=== PATIENT | female | born 1985 | race Two or more races ===

== ENCOUNTER 2018-03-17 17:45 | Emergency (ER) | payer SELFPAY ==
[~2018-03-17] VITALS: Ht 167.6 cm; Wt 77.0 kg
[2018-03-17 18:09] VITALS: BP 194/119
== END 2018-03-17 22:43 | disposition home or self-care (01) ==
LOC: ER 17:45
DX: H43.399 Other vitreous opacities, unspecified eye (principal); I10 Essential (primary) hypertension; H53.8 Other visual disturbances
CPT/HCPCS: 99281